=== PATIENT | female | born 1990 | race African-American/Black ===

== ENCOUNTER 2020-08-05 09:45 | Emergency (ER) | payer OTHER, SELFPAY ==
[2020-08-05 09:48] VITALS: BP 112/74; PULSE 82; RESP 15; TEMP 37.1; O2SAT 100; BMI 20.7
--- NOTE | 2020-08-05 10:02 | DI.US.S_ITS ---
PROCEDURE: US OB <= 14 WEEKS FETUS INDICATIONS: SPOTTING 12 WEEKS GESTATION OUTSIDE/PRIOR DATING DATA: Last menstrual period (LMP): 05/14/2020. LMP-based estimated date of delivery (DENNIS): 02/18/2021 First dating scan (date and location): 08/05/2020 Estimated date of delivery (DENNIS) from first dating scan: 02/16/2021 TECHNIQUE: Real-time scanning was performed of the fetuses and maternal pelvic organs, with image documentation. Endovaginal scanning: Performed for better visualization of the fetuses and maternal adnexal structures. COMPARISON: None. FINDINGS: Single intrauterine gestational sac is seen with pole and yolk sac seen. heart rate is 171 beats per minute. Steptoe-rump length measures 5.6 centimeters. Estimated gestational age based on current study is 12 weeks 1 day. There is no perigestational hematoma. Measurement variability in dating: +/- 4 weeks by LMP, +/- 7 days by mean sac diameter (use before 6 weeks gestation if crown-rump length unable to be measured), +/- 5 days by crown-rump length (up to 8 weeks 6 days gestation), +/- 7 days by crown-rump length (up to 13 weeks 6 days gestation). Maternal organs: Left ovary is not visualized on this study. Right ovary contains a corpus luteal cyst measures 2 x 2.3 x 1.9 cm in size. Limited images through the kidneys demonstrate mild pelviectasis in right kidney. 3 millimeter echogenic focus is seen in upper pole of right kidney. IMPRESSION: 1. Single live intrauterine with fetus and yolk sac seen. heart rate is 171 beats per minute. Estimated gestational age is 12 weeks 1 day. 2. No evidence of perigestational hematoma 3. Corpus luteal cyst is seen in right ovary as above. Left ovary is not visualized on this study. 4. Mild right renal pelviectasis. Suggestion of tiny 3 millimeter nonobstructing upper pole right renal stone. No left-sided hydronephrosis. Dictated by: Ronnie Babb M.D. on 08/05/2020 at 10:42 Approved by: Ronnie Babb M.D. on 08/05/2020 at 10:45
--- NOTE | 2020-08-05 10:05 | PC.NURSE ---
pt dx with subchorionic hemmorhage 6 wks ago,bleeding stopped,spotting began this morning
[2020-08-05 10:29] LABS: Add Manual Diff / Slide Review NO; Basophils Absolute Auto 0 /uL (0-100); Basophils Percent Auto 0.7 % (0-2); Eosinophils Absolute Auto 0 /uL (0-450); Eosinophils Percent Auto 0.6 % (2-4); Hematocrit 36.2 % (36-46); Hemoglobin 12.4 g/dL (12.0-16.0); Lymphocytes Absolute Auto 1300 /uL (1100-4500); Lymphocytes Percent Auto 30.7 % (25-40); Mean Corpuscular HGB Conc 34.1 % (30-36); Mean Corpuscular Volume 81.9 fL (80-100); Monocytes Absolute Auto 300 /uL (0-900); Monocytes Percent Auto 7.8 % (3-14); Neutrophils Absolute Auto 2500 /uL (1500-7000); Neutrophils Percent Auto 60.2 % (50-75); Platelet Count 261 X10^3/uL (150-400); Red Blood Cell Count 4.42 X10^6/uL (4.0-5.2); Red Cell Distribution Width 13.6 % (11.6-14.8); White Blood Cell Count 4.2 X10^3/uL (4.5-11.0)
--- NOTE | 2020-08-05 10:38 | ED.PREGNANCY ---
HPI - General Chief complaint: Vaginal Bleeding Stated complaint: spotting and 12 weeks Time Seen by Provider: 08/05/20 10:37 Source: patient Mode of arrival: Ambulatory Limitations: no limitations History of Present Illness HPI Narrative: This is a 29-year-old female at 12 weeks who woke up overnight feeling nauseated and having some vaginal pain, patient described as stinging needles in the vaginal area. She also had some loose diarrhea like stools. Patient states she continues to feel nauseated. This morning she noted some spotting on her underwear when she woke up. She has not had any abdominal cramping that she is appreciated. She has been following with OBGYN through the [facility] but is currently transitioning to the OBGYN service here at [facility] secondary to base staffing issues. She is scheduled to be seen on the . Patient had 1 prior which was vaginal delivery with no complications. During this at 6 weeks she had some spotting had a subchorionic hemorrhage, she has not had any other complications. She denies any other medical issues, no surgeries. No allergies to medications. She does take a daily. 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 RESPIRATORY: Breath sounds equal bilaterally, no wheezes rales or rhonchi. ABDOMEN: Soft, nontender. Normoactive bowel sounds all 4 quadrants. No guarding or rebound, rigidity, no mass : No CVA tenderness EXTREMITIES: Normal range of motion, no clubbing or edema. Neurovascularly intact NEUROLOGICAL: Cranial nerves II through XII grossly intact. Moving all extremities SKIN: Warm, dry, no petechiae, no rashes or lesions. Initial Vital Signs Initial Vital Signs: Vital Signs Temperature 98.8 F 08/05/20 09:48 Pulse Rate 82 08/05/20 09:48 Respiratory Rate 15 08/05/20 09:48 Blood Pressure 112/74 08/05/20 09:48 Pulse Oximetry 100 08/05/20 09:48 Course Orders Ordered: ED Orders 08/05/20 10:02 US OB <= 14 weeks fetus Stat 08/05/20 10:15 ABO RH Type Stat Complete Blood Count AUTO DIFF Stat Comprehensive Metabolic Panel Stat HCG Quantitative /Beta subunit Stat Discontinued Medications Ondansetron HCl (Zofran Odt) 4 mg SL NOW ONE Stop: 08/05/20 11:18 Reevaluation(s) Reevaluation #1: Patient and I discussed lab findings, ultrasound, plan for pelvic rest. She has follow-up on the 17 of August but we discussed she could follow up sooner. She can call the office. Discussed signs and symptoms to watch for and at this time the majority of care is watchful waiting to see if bleeding worsens or stops and progresses uneventfully. Time: 12:08 Vital Signs Vital signs: Vital Signs - 8 hr 08/05/20 09:48 Temperature 98.8 F Pulse Rate 82 Respiratory Rate 15 Blood Pressure 112/74 Pulse Oximetry 100 MDM - OB/Uterine Contractions Lab Data Attestation: I reviewed the patient's lab results. Result diagrams: 08/05/20 10:15 08/05/20 10:15 Labs: Lab Results 08/05/20 08/05/20 08/05/20 Range/Units 10:15 10:15 10:15 WBC 4.2 L (4.5-11.0) X10^3/uL RBC 4.42 (4.0-5.2) X10^6/uL Hgb 12.4 (12.0-16.0) g/dL Hct 36.2 (36-46) % MCV 81.9 (80-100) fL MCH 28.0 (26-34) PG MCHC 34.1 (30-36) % RDW 13.6 (11.6-14.8) % Plt Count 261 (150-400) X10^3/uL Neut % (Auto) 60.2 (50-75) % Lymph % (Auto) 30.7 (25-40) % [place] % (Auto) 7.8 (3-14) % Eos % (Auto) 0.6 L (2-4) % Baso % (Auto) 0.7 (0-2) % Neut # (Auto) 2500 (9668-9705) /uL Lymph # (Auto) 1300 (8042-9506) /uL [place]ole # (Auto) 300 (0-900) /uL Eos # (Auto) 0 (0-450) /uL Baso # (Auto) 0 (0-100) /uL Sodium 134 L (137-145) mmol/L Potassium 3.6 (3.4-5.1) mmol/L Chloride 104 (98-107) mmol/L Carbon Dioxide 26 (22-32) mmol/L BUN 7 (7-17) mg/dL Creatinine 0.53 (0.52-1.04) mg/dL Estimated GFR > 60.0 (>60) mL/min BUN/Creatinine Ratio 13.2 (6-22) Glucose 87 (70-100) mg/dL Calcium 9.3 (8.4-10.2) mg/dL Total Bilirubin 0.4 (0.2-1.3) mg/dL AST 22 (14-36) IU/L ALT 9 (<35) IU/L Alkaline Phosphatase 43 (38-126) U/L Total Protein 7.2 (6.3-8.2) g/dL Albumin 3.8 (3.5-5.0) g/dL Globulin 3.4 (1.7-4.1) g/dL Albumin/Globulin Ratio 1.1 (1.0-2.8) HCG, Quant 066373 mIU/mL Blood Type O Positive Urine Dip Bedside Urine Glucose Negative Bedside Urine Bilirubin - Negative Bedside Urine Ketone - Negative Urine Specific [place] 1.025 Bedside Urine Occult Blood +/- Bedside Urine pH 6.0 Bedside Urine Protein - Negative Bedside Urine Urobilinogen - Negative Bedside Urine Nitrite - Negative Bedside Urine Leukocytes - Negative Esterase MDM Narrative Medical decision making narrative: Patient comes in with vaginal spotting, she had a subchorionic hemorrhage at 6 weeks, this is resolved on ultrasound. Heart rates in the 170s but no other changes. Patient has had some spotting but no additional active bleeding. Her labs including her Rh status. Patient does not require RhoGAM today she is O positive. Plan for pelvic rest, follow-up with OB. Discharge Plan Departure Patient Disposition: Home Clinical Impression: Vaginal bleeding during Discharge Date/Time: 08/05/20 12:11 Instructions: DI for Vaginal Bleeding During Activity Restrictions/Additional Instructions: Follow-up with your OBGYN appointment that is scheduled, I would recommend calling to see if they would like you to come in sooner. I would recommend pelvic rest with no heavy lifting, no sexual activity and do not use any tampons for any continued vaginal spotting. Make sure you are drinking plenty of fluids. You may take Zofran 1 tablet every 6 hours as needed for nausea. Return to the ER for fevers, rapidly worsening abdominal or pelvic pain, lightheadedness, passing out, new chest pain or shortness of breath, passing large clots or rapidly worsening vaginal bleeding or other new or concerning symptoms. Prescriptions: New ondansetron HCl [Zofran] 4 mg tablet 4 mg PO Q6H PRN (Reason: nausea and vomiting) Qty: 10 RF: 0 Referrals: Marielle Dillard MD [Primary Care Provider] - Stand Alone Forms: Against Medical Advice
[2020-08-05 10:39] LABS: Alanine Aminotransferase 9 IU/L (<35); Albumin 3.8 g/dL (3.5-5.0); Albumin Globulin Ratio 1.1 (1.0-2.8); Alkaline Phosphatase 43 U/L (38-126); Aspartate Aminotransferase 22 IU/L (14-36); BUN Creatinine Ratio 13.2 (6-22); Bilirubin Total 0.4 mg/dL (0.2-1.3); Blood Urea Nitrogen 7 mg/dL (7-17); Calcium 9.3 mg/dL (8.4-10.2); Carbon Dioxide 26 mmol/L (22-32); Chloride 104 mmol/L (98-107); Estimated Glomerular Filt Rate > 60.0 mL/min (>60); Globulin 3.4 g/dL (1.7-4.1); Glucose 87 mg/dL (70-100); HEMOLYSIS < 15 (0-50); Potassium 3.6 mmol/L (3.4-5.1); Sodium 134 mmol/L (137-145); Total Protein 7.2 g/dL (6.3-8.2)
[2020-08-05 11:21] LABS: HCG Quantitative /Beta subunit 146440 mIU/mL
[2020-08-05 12:11] VITALS: BP 118/70; PULSE 85; O2SAT 98
== END 2020-08-05 12:11 | disposition home or self-care (01) ==
PROVIDERS: Emergency Provider Emergency Medicine; PCP Obstetrics & Gynecology
DX: O46.91 Antepartum hemorrhage, unspecified, first trimester (principal); R11.0 Nausea; R19.7 Diarrhea, unspecified; Z3A.12 12 weeks gestation of pregnancy
CPT/HCPCS: 36415; 76801; 76817; 80053; 81003; 84702; 85025; 86900; 86901; 99284

== ENCOUNTER → 2020-10-01 12:11 | Outpatient (CLI) | payer OTHER, SELFPAY ==
--- NOTE | 2020-10-01 12:12 | DI.US.S_ITS ---
PROCEDURE: US OB >= 14 WEEKS FETUS INDICATIONS: 20 week anatomy scan OUTSIDE/PRIOR DATING DATA: Last menstrual period (LMP): 05/14/2020. LMP-based estimated date of delivery (DENNIS): 12/19/2020 First dating scan (date and location): 08/05/2020 at [facility] Estimated date of delivery (DENNIS) from first dating scan: 02/16/2021 TECHNIQUE: Real-time scanning was performed of the fetus, with image documentation and biometric measurements. Endovaginal scanning: Not performed. COMPARISON: [facility], US, OB >= 14 WEEKS FETUS, 09/14/2020, 11:26. FINDINGS: General: A single living intrauterine gestation is present. Presentation: Breech Placenta: Placental position is posterior, without previa. Amniotic fluid index: 11 cm, normal range is 5-24 cm. heart rate: 158 beats per minute. Maternal cervical canal: 7.2 cm long. Normal lower limit is 2.5 cm. biometrics: Biparietal diameter: 4.7 cm, 20 weeks 2 days Head circumference: 17.9 cm, 20 weeks 3 days Abdominal circumference: 15.2 cm, 20 weeks 3 days Femur length: 3.3 cm, 20 weeks 1 day Estimated gestational age from initial scan: 20 weeks 2 days. Composite gestational age from present scan: 20 weeks 2 days Estimated weight and percentile: 347 g, 48th percentile Measurement variability for biometric dating: +/- 7 days from 14 weeks to 15 weeks 6 days gestation, +/- 10 days from 16 weeks to 21 weeks 6 days gestation, +/- 2 weeks from 22 weeks to 27 weeks 6 days gestation, +/- 3 weeks for 28 weeks gestation or later. weight reference: 4500 g or EFW >90/95% is considered macrosomia or large for gestational age. EFW <10% is small for gestational age. EFW 5% or less is considered intra-uterine growth restriction. Anatomic survey: Neuro: Ventricles are non-dilated at less than 10 mm. Cisterna magna is normal at 3-11 mm. Cerebellum is normal in size and morphology. Nuchal skin fold: Normal at less than 6 mm between 14-21 weeks gestational age. Face: Nose and lips, facial profile are normal. Spine: No evidence for spina bifida. Heart: 4-chambered heart is present, with normal ventricular outflow tracts. Diaphragm: Diaphragm is intact. Stomach: Left-sided stomach is present. Kidneys: No hydronephrosis. Normal is less than 5 mm in 2nd trimester, less than 7 mm in 3rd trimester. Cord: 3-vessel cord has orthotopic insertion. Bladder: Normal in size. Extremities: All 4 extremities identified. IMPRESSION: 1. Single live intrauterine with appropriate interval growth. 2. Normal anatomic survey. 3. gender not well visualized. Dictated by: Ananth Mireles M.D. on 10/01/2020 at 14:02 Approved by: Ananth Mireles M.D. on 10/01/2020 at 14:07
== END ==
PROVIDERS: PCP Obstetrics & Gynecology; Referring Provider Obstetrics & Gynecology; Visit Provider Obstetrics & Gynecology
DX: Z34.82 Encounter for supervision of other normal pregnancy, second trimester (principal); Z3A.20 20 weeks gestation of pregnancy
CPT/HCPCS: 76811

== ENCOUNTER 2020-11-01 19:30 | Outpatient (CLI) | payer OTHER, SELFPAY ==
--- NOTE | 2020-11-01 19:59 | P.TNLD_ITS ---
Visit Information Visit Information Date of evaluation: 11/01/20 Primary OB Provider: Marielle Dillard On-call OB Provider: Trisha Ruffin Reason for Evaluation: Yes non-stress test Comments/Additional reasons for admission: Patient is a 30-year-old at 24 weeks and 3 days presenting with leaking of fluid x1 week as well as right rib pain. complicated by frequent UTI managed with prophylactic nitrofurantoin. She reported good movement denied contractions or bleeding. No fevers. [facility] Medical History (Updated 11/02/20 @ 07:22 by Trisha Ruffin DO) H/O being hospitalized (~2015) Sepsis (spontaneous vaginal delivery) (~11/26/16) UTI (urinary tract infection) Surgical History (Updated 08/11/20 @ 10:59 by Lauryn Escalante, MYKE) H/O wisdom tooth extraction Family History (Updated 08/11/20 @ 11:00 by Lauryn Escalante RN) Mother No problems noted. Father Myocardial infarction Asthma Grandmother Diabetes mellitus Grandfather No problems noted. Grandmother Cancer Lung cancer Grandfather Family estrangement Family/Other Autism Family/Other Cancer Family/Other Cancer Brother CVA (cerebral vascular accident) Sister Asthma Social History marital status: (In divorce proceedings - will be before this baby is born. Ex- is not Father of Lucas.) household members: significant other lives independently: Yes pets and animals: No occupational status: employed (Active Duty : Limited) current occupational exposures/hazards: No special sean needs: No Smoking Status: Former smoker (Quit : 3 years ago 2016 ) Tobacco: How many years used: 2 second hand exposure: No alcohol intake: former (pre- : social) substance use type: does not use Evaluation Evaluation Baseline heart rate: 150 Variability: Moderate (11-25) monitor accelerations: Present monitor decelerations: Absent Category of Tracing: Reactive Non-invasive Membranes Rupture Test: negative Diagnosis, Plan/Disposition Final Diagnosis (1) 24 weeks gestation of : Status: Acute Plan/Disposition Plan: 30-year-old at 24 weeks and 3 days gestation with concerns for rupture of membranes. AmniSure was negative. NST reactive. Urinalysis appears negative however culture is pending. She will discharge home and follow-up with Dr. Dillard as scheduled. OB Disposition: home
[2020-11-01 20:00] LABS: Appearance Urine UA SL CLOUDY; Bilirubin Urine UA NEGATIVE (NEGATIVE); Color Urine UA YELLOW; Glucose Urine UA NEGATIVE (Negative); Ketones Urine UA NEGATIVE (NEGATIVE); Leukocyte Esterase Urine UA 1+ (NEGATIVE); Nitrite Urine UA NEGATIVE (Negative); Occult Blood Urine UA NEGATIVE (Negative); Protein Urine UA NEGATIVE (Negative); Specific Gravity Urine UA <=1.005 (1.000-1.035); Urobilinogen Urine UA 0.2 E.U./dL (0.2)
[2020-11-01 20:12] LABS: pH Urine UA 6.5 (4.5-8.0)
[2020-11-01 20:13] LABS: RBC Urine None Seen (0-5/HPF)
[2020-11-01 20:20] LABS: WBC Urine 10-30/HPF (0-5/HPF)
[2020-11-01 20:21] LABS: Amorphous Sediment Urine 1+; Bacteria Urine Many (>30); Culture Indicated Urine Specimen Cultured; Squamous Epithelial Cell Urine 5-10 /HPF (0-5/HPF)
== END 2020-11-01 20:05 | disposition home or self-care (01) ==
LOC: LABOR 20:20 → OB 11-02 08:59
PROVIDERS: Referring Provider Family Medicine; Visit Provider Family Medicine
DX: O26.892 Other specified pregnancy related conditions, second trimester (principal); N89.8 Other specified noninflammatory disorders of vagina; R07.81 Pleurodynia; Z3A.24 24 weeks gestation of pregnancy
CPT/HCPCS: 59025; 81003; 81015; 84112; 87086; G0378; G0379

== ENCOUNTER → 2020-11-05 12:44 | Outpatient (CLI) | payer OTHER, SELFPAY | PROVIDERS: Visit Provider Obstetrics & Gynecology | DX: Z34.90 Encounter for supervision of normal pregnancy, unspecified, unspecified trimester (principal); Z3A.24 24 weeks gestation of pregnancy; Z87.440 Personal history of urinary (tract) infections | CPT/HCPCS: 87077; 87086 ==

== ENCOUNTER 2020-11-19 01:09 | Observation (INO) | payer OTHER, SELFPAY ==
--- NOTE | 2020-11-19 | DI.US.S_ITS ---
PROCEDURE: US OB LIMITED INDICATIONS: CERVICAL LENGTH, AMNIOTIC FLUID, AND POSITION OUTSIDE/PRIOR DATING DATA: Last menstrual period (LMP): May 14, 2020. LMP-based estimated date of delivery (DENNIS): February 18, 2021. First dating scan (date and location): August 05, 2020. Estimated date of delivery (DENNIS) from first dating scan: February 16, 2021. TECHNIQUE: Real-time scanning was performed of the fetus, with image documentation. Endovaginal scanning: Perform COMPARISON: None. FINDINGS: A single living intrauterine gestation is present. Presentation: Vertex Placenta: Placental position is posterior, without previa. Amniotic fluid index: 21.5 cm, normal range is 5-24 cm. heart rate: 180 beats per minute. Maternal cervical canal: Closed and 3.4 cm long. Normal lower limit is 2.5 cm. Estimated gestational age from initial scan: 27 weeks 2 days. IMPRESSION: 1. Single living intrauterine gestation. 2. Normal amniotic fluid index. 3. Cervical canal length 3.4 centimeters. Dictated by: January Venegas MD, PhD on 11/19/2020 at 9:03 Approved by: January Venegas MD, PhD on 11/19/2020 at 9:04
[2020-11-19 01:29] LABS: RBC Urine None Seen (0-5/HPF); WBC Urine None Seen (0-5/HPF)
[2020-11-19 01:38] LABS: Appearance Urine UA CLEAR; Bilirubin Urine UA NEGATIVE (NEGATIVE); Glucose Urine UA NEGATIVE (Negative); Ketones Urine UA NEGATIVE (NEGATIVE); Leukocyte Esterase Urine UA NEGATIVE (NEGATIVE); Nitrite Urine UA NEGATIVE (Negative); Occult Blood Urine UA NEGATIVE (Negative); Protein Urine UA NEGATIVE (Negative); Specific Gravity Urine UA <=1.005 (1.000-1.035); Urobilinogen Urine UA 0.2 E.U./dL (0.2)
[2020-11-19 01:39] LABS: Color Urine UA Straw
[2020-11-19] MEDS: NIFEdipine 10 MG CAPSULE PO ×4 (02:00→03:25)
[2020-11-19 02:11] LABS: Bacteria Urine Occasional (0-1); Culture Indicated Urine Cult Not Indicated
--- NOTE | 2020-11-19 02:44 | P.TNLD_ITS ---
Visit Information Visit Information Date of evaluation: 11/19/20 Primary OB Provider: Marielle Dillard On-call OB Provider: Trisha Ruffin Reason for Evaluation: Yes pre-term labor Comments/Additional reasons for admission: Patient is a 30-year-old at 27 weeks gestation with reports regular contractions since approximately 10:30 p.m.. They feel like [place] contractions but occasionally she has a stronger one. She tried drinking water and lying down but contractions persisted so she presented to the center. Reports good movement and denies leaking or bleeding or fevers. She has otherwise felt well besides the contractions. She takes prophylactic nitrofurantoin for recurrent UTIs. She has a history of one vaginal delivery at term which was complicated by a c ervical laceration. Vital Signs Vital Signs: T 36.9 BP 101/65 P77 [facility] Medical History (Updated 11/19/20 @ 02:46 by Trisha Ruffin DO) H/O being hospitalized (~2015) Sepsis (spontaneous vaginal delivery) (~11/26/16) UTI (urinary tract infection) Surgical History (Updated 08/11/20 @ 10:59 by Lauryn Escalante RN) H/O wisdom tooth extraction Family History (Updated 08/11/20 @ 11:00 by Lauryn Escalante RN) Mother No problems noted. Father Myocardial infarction Asthma Grandmother Diabetes mellitus Grandfather No problems noted. Grandmother Cancer Lung cancer Grandfather Family estrangement Family/Other Autism Family/Other Cancer Family/Other Cancer Brother CVA (cerebral vascular accident) Sister Asthma Social History marital status: (In divorce proceedings - will be before this baby is born. Ex- is not Father of Lucas.) household members: significant other lives independently: Yes pets and animals: No occupational status: employed (Active Duty : Limited) current occupational exposures/hazards: No special sean needs: No Smoking Status: Former smoker (Quit : 3 years ago 2016 ) Tobacco: How many years used: 2 second hand exposure: No alcohol intake: former (pre- : social) substance use type: does not use Objective Labs Labs: Laboratory Results - last 24 hr 11/19/20 01:20 Urine Color Straw Urine Appearance Clear Urine pH 7.0 Ur Specific [place] <=1.005 Urine Protein Negative Urine Glucose (UA) Negative Urine Ketones Negative Urine Occult Blood Negative Urine Nitrate Negative Urine Bilirubin Negative Urine Urobilinogen 0.2 Ur Leukocyte Esterase Negative Urine RBC None seen Urine WBC None seen Urine Bacteria Occasional (0-1) D Ur Culture Indicated? Cult not indicated Evaluation Evaluation Baseline heart rate: 150 Variability: Moderate (11-25) monitor accelerations: Present monitor decelerations: Absent Contraction Frequency (minutes): 3 Category of Tracing: Reactive Cervical dilation (cm): 0 Cervical effacement (%): 25 station: -3 Laboratory results: Laboratory Tests 11/19/20 01:20 Urine Color Straw Urine Appearance Clear Urine pH 7.0 Ur Specific [place] <=1.005 Urine Protein Negative Urine Glucose (UA) Negative Urine Ketones Negative Urine Occult Blood Negative Urine Nitrate Negative Urine Bilirubin Negative Urine Urobilinogen 0.2 Ur Leukocyte Esterase Negative Urine RBC None seen Urine WBC None seen Urine Bacteria Occasional (0-1) D Ur Culture Indicated? Cult not indicated Diagnosis, Plan/Disposition Final Diagnosis (1) contractions: Status: Acute (2) 27 weeks gestation of : Status: Acute Plan/Disposition Plan: Patient is a 30-year-old at 27 weeks gestation with regular contractions every 3 minutes up arrival to the center. complicated by recurrent UTI on prophylactic Macrobid. She was also recently treated with metronidazole for gardnerella UTI. Patient has otherwise felt well without leaking of fluid or vaginal bleeding. No h/o labor in her first . UA negative. Ultrasound showed cervical length of 3.4 cm with DONN of 21.5 and in vertex position. Patient received nifedipine protocol without significant change in contractions. FFN was sent and returned negative. She received a liter of LR and was monitored over several more hours with subjective improvement in her contractions. She is felt to be safe to discharge home given CL>3 cm, neg FFN and improvement in contractions. She is aware to return to the center for increased contractions (frequency or pain). Follow up with Dr. Dillard as scheduled. OB Disposition: home
[2020-11-19 04:52] LABS: Fetal Fibronectin Negative
[2020-11-19] MEDS: ACETAMINOPHEN 325 MG TABLET 650 MG PO (05:05)
[2020-11-19] MEDS: LACTATED RINGERS 1,000 ML 1000 ML IV (05:07)
== END 2020-11-19 06:20 | disposition home or self-care (01) ==
LOC: LABOR 01:12
PROVIDERS: Admitting Provider Family Medicine; Referring Provider Family Medicine; Visit Provider Family Medicine
DX: O60.02 Preterm labor without delivery, second trimester (principal); Z3A.27 27 weeks gestation of pregnancy; Z87.440 Personal history of urinary (tract) infections
CPT/HCPCS: 59025; 59050; 76815; 81001; 82731; 96360; G0378; G0379

== ENCOUNTER 2020-11-26 15:52 | Observation (INO) | payer OTHER, SELFPAY ==
[2020-11-26] MEDS: NIFEdipine 10 MG CAPSULE PO ×4 (16:36→17:39)
[2020-11-26 17:09] LABS: Appearance Urine UA CLEAR; Bilirubin Urine UA NEGATIVE (NEGATIVE); Color Urine UA YELLOW; Glucose Urine UA NEGATIVE (Negative); Ketones Urine UA 1+ (NEGATIVE); Leukocyte Esterase Urine UA NEGATIVE (NEGATIVE); Nitrite Urine UA NEGATIVE (Negative); Occult Blood Urine UA NEGATIVE (Negative); Protein Urine UA NEGATIVE (Negative); Specific Gravity Urine UA 1.015 (1.000-1.035); Urobilinogen Urine UA 0.2 E.U./dL (0.2)
[2020-11-26 17:19] LABS: Bacteria Urine Few (2-10); Culture Indicated Urine Cult Not Indicated; RBC Urine 0-1/HPF (0-5/HPF); WBC Urine 0-1/HPF (0-5/HPF)
[2020-11-26 17:29] LABS: Fetal Fibronectin Negative
[2020-11-26] MEDS: LACTATED RINGERS 1,000 ML 1000 ML IV (18:05)
[2020-11-26 18:13] LABS: Add Manual Diff / Slide Review NO; Basophils Absolute Auto 0 /uL (0-100); Basophils Percent Auto 0.7 % (0-2); Eosinophils Absolute Auto 0 /uL (0-450); Eosinophils Percent Auto 0.7 % (2-4); Hematocrit 36.6 % (36-46); Hemoglobin 12.3 g/dL (12.0-16.0); Lymphocytes Absolute Auto 2000 /uL (1100-4500); Lymphocytes Percent Auto 29.9 % (25-40); Mean Corpuscular HGB Conc 33.6 % (30-36); Mean Corpuscular Hemoglobin 28.4 PG (26-34); Mean Corpuscular Volume 84.3 fL (80-100); Monocytes Absolute Auto 600 /uL (0-900); Monocytes Percent Auto 8.9 % (3-14); Neutrophils Absolute Auto 3900 /uL (1500-7000); Neutrophils Percent Auto 59.8 % (50-75); Platelet Count 245 X10^3/uL (150-400); Red Blood Cell Count 4.33 X10^6/uL (4.0-5.2); Red Cell Distribution Width 13.9 % (11.6-14.8); White Blood Cell Count 6.6 X10^3/uL (4.5-11.0)
--- NOTE | 2020-11-26 18:18 | PM.OBHP.1 ---
OB HPI Date/Time Date of admission: 11/26/20 Date Patient Seen: 11/26/20 Time Patient Seen: 18:18 History of Present Condition Chief complaint: NST : 2 Para: 1 Estimated Date of Delivery: 02/18/21 Estimated Gestational Age (weeks): 28 Narrative: Daina Casas is a 30 year old @28+0 by 7 week ultrasound consistent with LMP, presenting to Labor and delivery with concern for labor. The patient was evaluated 1 week ago with persistent contractions, but discharged home with a long cervix and a negative FF in. The patient reports that her contractions persisted consistently every 2-5 minutes, increasingly painful, until she presented to today's scheduled clinic visit. The patient qualified for an FFN and this was collected and found to be negative, and initial cervical length was 4 cm with no funneling or change with Valsalva. The patient's cervix was initially closed, long, posterior, and medium consistency, with the presenting part barely palpable. She was sent to Labor and delivery for monitoring, where she was found to be brigitte Q 2-3 minutes despite a course of nifedipine, p.o. and then IV hydration, and bladder emptying. The patient has a history of frequent UTIs and is currently on Macrobid 100 mg daily for suppression, and denies dysuria, urinary frequency, hematuria, foul-smelling urine, or suprapubic pain today. She denies fevers, chills, recent abdominal trauma, loss of fluid or vaginal bleeding, decreased movement, headaches, visual changes, right upper quadrant pain, or any associated symptoms beyond these contractions. Transabdominal ultrasound in the clinic showed symmetric growth with an EFW of 1263 g, 62nd percentile, with an DONN of 16 and vertex presentation. The patient was found to hours after initial exam to have made cervical change to 1 cm though her cervix remains thick, -3 station and no longer easily ballotable, with a softer and more anterior cervix. Her was marked by transfer of care from the [facility] at 13 weeks. She was recently diagnosed with depression and started on sertraline 3 weeks ago to good effect, now taking 50 mg daily. Her has also been complicated by social factors including and ongoing divorce from her partner who is not the father of this baby, and the fact that her 3-year-old lives on the [facility]. She has had a safe living situation, and denies any thoughts of hurting herself or others though she does report poor p.o. intake during the worst of her depressive symptoms. The patient declined aneuploid screening during this , had a normal anatomy scan, and has not completed her Glucola. Her 1st was followed by a 40 week vaginal delivery of a 7 lb 9 oz male infant. The patient reports a cervical laceration during the , and serial cervical lengths during this have been normal, over 4cm. History of Present care: good care Dating criteria: LMP confirmed by 1st trimester US Ultrasounds: normal 1st trimester US and normal mid trimester US Obstetrical complications: none Medical complications: none Preadmission Labs Blood type: O (+) positive -: Antibody screen: negative, GBS status: unknown, HBsAG: negative, HIV: negative and RPR/VDLR: negative -: Chlamydia screen: not detected and Gonorrhea screen: not detected -: Rubella: immune and Varicella: immune PAP: Normal Integrated screen: Declined Urine: +e coli Prior (ies) History: G1: 11/26/16, , 40wks, 7#9, M, c/b cervical laceration Evaluation Evaluation Baseline heart rate: 150 Variability: Average (6-10) monitor accelerations: Present monitor decelerations: Absent Contraction Frequency (minutes): 2 Uterine Contraction Intensity: Strong/Firm Category of Tracing: Reactive Status: Category l Cervical dilation (cm): 1 Cervical effacement (%): 20 station: -3 Laboratory results: Laboratory Tests 11/26/20 11/26/20 16:08 16:08 Urine Color Yellow Urine Appearance Clear Urine pH 7.0 Ur Specific [place] 1.015 Urine Protein Negative Urine Glucose (UA) Negative Urine Ketones 1+ H Urine Occult Blood Negative Urine Nitrate Negative Urine Bilirubin Negative Urine Urobilinogen 0.2 Ur Leukocyte Esterase Negative Urine RBC 0-1/hpf Urine WBC 0-1/hpf Urine Bacteria Few (2-10) H Ur Culture Indicated? Cult not indicated Fibronectin Negative PFSH Medical History H/O being hospitalized (~2015) Sepsis (spontaneous vaginal delivery) (~11/26/16) UTI (urinary tract infection) Surgical History H/O wisdom tooth extraction Family History Mother No problems noted. Father Myocardial infarction Asthma Grandmother Diabetes mellitus Grandfather No problems noted. Grandmother Cancer Lung cancer Grandfather Family estrangement Family/Other Autism Family/Other Cancer Family/Other Cancer Brother CVA (cerebral vascular accident) Sister Asthma Social History marital status: (In divorce proceedings - will be before this baby is born. Ex- is not Father of Lucas.) household members: significant other lives independently: Yes pets and animals: No occupational status: employed (Active Duty : Limited) current occupational exposures/hazards: No special sean needs: No Smoking Status: Former smoker (Quit : 3 years ago 2016 ) Tobacco: How many years used: 2 second hand exposure: No alcohol intake: former (pre- : social) substance use type: does not use Meds Home Medications and Allergies Home Medications Medication Instructions Recorded Confirmed Type ferrous sulfate 325 mg (65 mg 325 mg PO DAILY 08/11/20 08/11/20 History iron) tablet prenat.vits,jad,bbr-kmxs-bwqlm 1 tab PO DAILY 08/11/20 08/11/20 History pyridoxine (vitamin B6) 25 mg 25 mg PO BID 08/11/20 08/11/20 History tablet docusate sodium 100 mg capsule 100 mg PO BID #30 cap 08/17/20 08/17/20 Rx metoclopramide HCl 10 mg tablet 10 mg PO Q6H PRN #20 tab 08/17/20 08/17/20 Rx nitrofurantoin 100 mg PO DAILY #30 cap 08/17/20 08/17/20 Rx monohydrate/macrocrystals 100 mg capsule sertraline 50 mg tablet 50 mg PO DAILY #30 tab 11/11/20 Rx Allergies Allergy/AdvReac Type Severity Reaction Status Date / Time No Known Drug Allergies Allergy Verified 08/11/20 10:03 Review of Systems Constitutional Constitutional: Reports system reviewed and no additional complaints, except as documented Cardiovascular Cardiovascular: Reports system reviewed and no additional complaints, except as documented Respiratory Respiratory: Reports system reviewed and no additional complaints, except as documented Gastrointestinal Gastrointestinal: Reports as per HPI Genitourinary Genitourinary: Reports as per HPI Comments: No dysuria, frequency, hematuria, suprapubic pain, LOF, VB Exam Const General: cooperative and healthy appearing Resp Effort & Inspection: normal respiratory effort Auscultation: clear to auscultation bilaterally Cardio Rate: regular rate Rhythm: regular rhythm GI Palpation: soft and No tender Other: firm, palpable contractions. No CVA or suprapubic tenderness. External Female Exam: normal external appearance Presentation: vertex Extrem General: normal to inspection Objective Labs Result Diagrams: 11/26/20 18:05 Labs: Laboratory Results - last 24 hr 11/26/20 11/26/20 16:08 16:08 Urine Color Yellow Urine Appearance Clear Urine pH 7.0 Ur Specific [place] 1.015 Urine Protein Negative Urine Glucose (UA) Negative Urine Ketones 1+ H Urine Occult Blood Negative Urine Nitrate Negative Urine Bilirubin Negative Urine Urobilinogen 0.2 Ur Leukocyte Esterase Negative Urine RBC 0-1/hpf Urine WBC 0-1/hpf Urine Bacteria Few (2-10) H Ur Culture Indicated? Cult not indicated Fibronectin Negative Assessment and Plan Assessment and Plan Assessment and Plan narrative: This patient presents with a picture clinically concerning for labor despite and initially long and closed cervix and negative FFN. The patient was a reliable there are with if anything a tendency to minimize her discomfort, is reporting painful contractions that remain Q 2-3 despite the usual interventions. Her cervix is beginning to make cervical change, and given the patient's gestational age of 28+0, transfer to a center with a NICU needs to be expedited. The patient was discussed with Dr. Mendez at the [facility], and the patient is for transport via ambulance at this time given the course of her labor and the weather conditions. - Betamethasone 12mg IM administered at 18:35 on 11/26/20 - 4g loading dose of Mg sulfate, 2g/hr maintenance - GBS, covid testing, urine culture pending - cEFM, toco - LR@125ccs/hr - Felipe catheter placed
[2020-11-26] MEDS: MAGNESIUM SULFATE 4 GM/100 ML PIGGYBACK IV (18:34)
[2020-11-26] MEDS: BETAMETHASONE 30 MG/5 ML MDV 12 MG IM (18:58)
[2020-11-26] MEDS: MAGNESIUM SULFATE 20 GM/500 ML IV.SOLN IV (19:32)
[2020-11-26 19:54] VITALS: BP 96/51
[2020-11-26 20:02] LABS: COVID19 -Nasal RAPID Negative (Negative)
[2020-11-26 21:13] LABS: Strep Grp B PCR NEG for Grp B Strep
== END 2020-11-26 21:15 | disposition home or self-care (01) ==
PROVIDERS: Admitting Provider Obstetrics & Gynecology; Referring Provider Obstetrics & Gynecology; Visit Provider Obstetrics & Gynecology
DX: O60.03 Preterm labor without delivery, third trimester (principal); O99.343 Other mental disorders complicating pregnancy, third trimester; F32.9 Major depressive disorder, single episode, unspecified; Z3A.28 28 weeks gestation of pregnancy; Z20.822 Contact with and (suspected) exposure to COVID-19
CPT/HCPCS: 36415; 59025; 59050; 81001; 82731; 85025; 86850; 86900; 86901; 87081; 87086; 87635; 87653; 96360; 96372; C9803; G0378; G0379; J0702; J3475

== ENCOUNTER → 2020-12-07 09:55 | Outpatient (CLI) | payer OTHER, SELFPAY ==
[2020-12-07 11:41] LABS: Hemoglobin 11.3 g/dL (12.0-16.0)
[2020-12-07 11:59] LABS: GTT (PREG) 1 Hour PP 50gm Dose 139 mg/dL (76-139)
== END ==
PROVIDERS: Referring Provider Obstetrics & Gynecology; Visit Provider Obstetrics & Gynecology
DX: Z34.82 Encounter for supervision of other normal pregnancy, second trimester (principal); Z3A.27 27 weeks gestation of pregnancy
CPT/HCPCS: 36415; 82950; 85014; 85018

== ENCOUNTER 2020-12-21 18:42 | Outpatient (CLI) | payer OTHER, SELFPAY ==
--- NOTE | 2020-12-21 19:01 | DI.US.S_ITS ---
PROCEDURE: US OB TRANSVAGINAL INDICATIONS: PTL; CERVICAL LENGTH OUTSIDE/PRIOR DATING DATA: Last menstrual period (LMP): 05/14/2020 LMP-based estimated date of delivery (DENNIS): 02/18/2021 First dating scan (date and location): 08/05/2020 Estimated date of delivery (DENNIS) from first dating scan: 02/16/2021 TECHNIQUE: Real-time scanning was performed of the fetus, with image documentation. Endovaginal scanning: Performed for better evaluation of the cervix. COMPARISON: [facility], US, US OB >= 14 WEEKS FETUS, 11/26/2020, 15:31. FINDINGS: A single living intrauterine gestation is present. Presentation: Vertex. Placenta: Placental position is left fundal, without previa. Amniotic fluid index: 8 cm, normal range is 5-24 cm. heart rate: 158 beats per minute. Maternal cervical canal: 3.3 cm long. Normal lower limit is 2.5 cm. No funneling. Estimated gestational age from initial scan: 32 weeks 0 days. IMPRESSION: 1. Kwan living intrauterine at 32 weeks 0 days based on prior ultrasound. 2. Normal placenta and amniotic fluid. 3. Cervix measures 3.3 cm in length. No funneling. Dictated by: King Belle M.D. on 12/21/2020 at 20:22 Approved by: King Belle M.D. on 12/21/2020 at 20:26
== END 2020-12-21 19:45 | disposition home or self-care (01) ==
LOC: LABOR 19:02 → OB 12-22 07:11
PROVIDERS: Referring Provider Family Medicine; Visit Provider Family Medicine
DX: O47.03 False labor before 37 completed weeks of gestation, third trimester (principal); O46.93 Antepartum hemorrhage, unspecified, third trimester; Z3A.31 31 weeks gestation of pregnancy
CPT/HCPCS: 59025; 76817; 84112; G0378; G0379

== ENCOUNTER → 2021-01-03 16:31 | Outpatient (CLI) | payer OTHER, SELFPAY ==
[2021-01-05 05:31] LABS: Candida species Negative (Negative); Gardnerella vaginalis Positive (Negative); Trichomoas vaginalis Negative (Negative)
== END ==
PROVIDERS: Visit Provider Obstetrics & Gynecology
DX: O26.893 Other specified pregnancy related conditions, third trimester (principal); N89.8 Other specified noninflammatory disorders of vagina; Z3A.33 33 weeks gestation of pregnancy
CPT/HCPCS: 87480; 87510; 87660

== ENCOUNTER → 2021-01-07 13:19 | Outpatient (CLI) | payer OTHER, SELFPAY ==
--- NOTE | 2021-01-07 13:20 | DI.US.S_ITS ---
PROCEDURE: US OB LIMITED INDICATIONS: INTRAUTERINE GROWTH RESTRICTION AND UMBILICAL CORD DOPPLERS OUTSIDE/PRIOR DATING DATA: Last menstrual period (LMP): 05/14/20 . LMP-based estimated date of delivery (DENNIS): 02/18/21 . First dating scan (date and location): 08/05/20 . Estimated date of delivery (DENNIS) from first dating scan: 02/16/21 . TECHNIQUE: Real-time scanning was performed of the fetus, with image documentation and biometric measurements. Endovaginal scanning: Not performed COMPARISON: [facility], OB LIMITED, 11/19/2020, 2:33. FINDINGS: General: A single living intrauterine gestation is present. Presentation: Vertex. Placenta: Placental position is left and posterior , without previa. Amniotic fluid index: 15.5 cm, normal range is 5-24 cm. heart rate: 163 beats per minute. Maternal cervical canal: 3.0 cm long. Normal lower limit is 2.5 cm. biometrics: Biparietal diameter: 8.3 cm, 33 weeks, three days Head circumference: 30.8 cm, 34 weeks, two days Abdominal circumference: 30.4 cm, 34 weeks, three days Femur length: 6.2 cm, 32 weeks, two days Estimated gestational age from initial scan: 34 weeks, two days Composite gestational age from present scan: 33 weeks, four days Estimated weight and percentile: 2254 g, 27th percentile Measurement variability for biometric dating: +/- 7 days from 14 weeks to 15 weeks 6 days gestation, +/- 10 days from 16 weeks to 21 weeks 6 days gestation, +/- 2 weeks from 22 weeks to 27 weeks 6 days gestation, +/- 3 weeks for 28 weeks gestation or later. weight reference: 4500 g or EFW >90/95% is considered macrosomia or large for gestational age. EFW <10% is small for gestational age. EFW 5% or less is considered intra-uterine growth restriction. Other: Umbilical artery Dopplers are as follows: 2.7, 2.2, 2.1, 2.7. IMPRESSION: 1. Single living intrauterine with composite gestational age five days behind the initially assigned gestational age. 2. Normal amniotic fluid volume. 3. Appropriate umbilical artery Dopplers. 4. Closed cervix measuring 3.0 cm in length. Dictated by: Haley Anton M.D. on 01/07/2021 at 17:06 Approved by: Haley Anton M.D. on 01/07/2021 at 17:11
== END ==
PROVIDERS: Referring Provider Obstetrics & Gynecology; Visit Provider Obstetrics & Gynecology
DX: Z3A.33 33 weeks gestation of pregnancy; O36.5930 Maternal care for other known or suspected poor fetal growth, third trimester, not applicable or unspecified
CPT/HCPCS: 76815

== ENCOUNTER → 2021-01-18 12:18 | Outpatient (CLI) | payer OTHER, SELFPAY ==
[2021-01-19 09:59] LABS: Strep Grp B PCR NEG for Grp B Strep
== END ==
PROVIDERS: Visit Provider Obstetrics & Gynecology
DX: Z34.83 Encounter for supervision of other normal pregnancy, third trimester (principal); Z3A.35 35 weeks gestation of pregnancy
CPT/HCPCS: 87653

== ENCOUNTER → 2021-01-24 09:05 | Outpatient (CLI) | payer OTHER, SELFPAY ==
[2021-01-24 13:30] LABS: Alanine Aminotransferase 12 IU/L (<35); Albumin 3.1 g/dL (3.5-5.0); Alkaline Phosphatase 157 U/L (38-126); Aspartate Aminotransferase 26 IU/L (14-36); BUN Creatinine Ratio 8.5 (6-22); Bilirubin Total 0.3 mg/dL (0.2-1.3); Blood Urea Nitrogen 4 mg/dL (7-17); Calcium 8.7 mg/dL (8.4-10.2); Carbon Dioxide 24 mmol/L (22-32); Chloride 105 mmol/L (98-107); Estimated Glomerular Filt Rate > 60.0 mL/min (>60); Globulin 3.2 g/dL (1.7-4.1); Glucose 75 mg/dL (70-100); HEMOLYSIS < 15 (0-50); Potassium 3.5 mmol/L (3.4-5.1); Sodium 134 mmol/L (137-145); Total Protein 6.3 g/dL (6.3-8.2)
[2021-01-25 07:41] LABS: Candida species Negative (Negative); Gardnerella vaginalis Positive (Negative); Trichomoas vaginalis Negative (Negative)
[2021-01-25 15:49] LABS: Bile Acids 1.7 umol/L (0.0-10.0)
== END ==
PROVIDERS: Visit Provider Obstetrics & Gynecology
DX: O23.593 Infection of other part of genital tract in pregnancy, third trimester (principal); B96.89 Other specified bacterial agents as the cause of diseases classified elsewhere; L29.9 Pruritus, unspecified; O47.9 False labor, unspecified; Z3A.36 36 weeks gestation of pregnancy
CPT/HCPCS: 36415; 80053; 82239; 85025; 87480; 87510; 87660

== ENCOUNTER → 2021-01-24 09:10 | Outpatient (CLI) | payer OTHER, SELFPAY ==
[2021-01-24 11:02] LABS: Add Manual Diff / Slide Review NO; Basophils Absolute Auto 0 /uL (0-100); Basophils Percent Auto 0.7 % (0-2); Eosinophils Absolute Auto 0 /uL (0-450); Eosinophils Percent Auto 0.7 % (2-4); Hematocrit 33.5 % (36-46); Hemoglobin 11.5 g/dL (12.0-16.0); Lymphocytes Absolute Auto 1400 /uL (1100-4500); Lymphocytes Percent Auto 28.8 % (25-40); Mean Corpuscular HGB Conc 34.2 % (30-36); Mean Corpuscular Hemoglobin 28.3 PG (26-34); Mean Corpuscular Volume 82.8 fL (80-100); Monocytes Absolute Auto 500 /uL (0-900); Neutrophils Absolute Auto 3000 /uL (1500-7000); Neutrophils Percent Auto 59.8 % (50-75); Platelet Count 205 X10^3/uL (150-400); Red Blood Cell Count 4.04 X10^6/uL (4.0-5.2); Red Cell Distribution Width 13.8 % (11.6-14.8); White Blood Cell Count 4.9 X10^3/uL (4.5-11.0)
== END ==
PROVIDERS: Referring Provider Obstetrics & Gynecology; Visit Provider Obstetrics & Gynecology
DX: O47.9 False labor, unspecified (principal)
CPT/HCPCS: 36415; 85025

== ENCOUNTER 2021-02-14 07:16 | Inpatient (IN) | payer OTHER, SELFPAY ==
[2021-02-14] MEDS: LACTATED RINGERS 1,000 ML 100 ML IV ×2 (07:45→12:20)
[2021-02-14] MEDS: OXYTOCIN PREMIX 30 UNIT/500 ML PLAST..BAG IV (08:01)
[2021-02-14 08:04] VITALS: BP 107/70
[2021-02-14 08:28] LABS: Add Manual Diff / Slide Review NO; Basophils Absolute Auto 100 /uL (0-100); Eosinophils Absolute Auto 100 /uL (0-450); Eosinophils Percent Auto 0.8 % (2-4); Hematocrit 35.2 % (36-46); Hemoglobin 11.9 g/dL (12.0-16.0); Lymphocytes Absolute Auto 1800 /uL (1100-4500); Lymphocytes Percent Auto 28.3 % (25-40); Mean Corpuscular HGB Conc 33.6 % (30-36); Mean Corpuscular Hemoglobin 28.3 PG (26-34); Mean Corpuscular Volume 84.1 fL (80-100); Monocytes Absolute Auto 700 /uL (0-900); Monocytes Percent Auto 10.4 % (3-14); Neutrophils Absolute Auto 3800 /uL (1500-7000); Neutrophils Percent Auto 59.5 % (50-75); Platelet Count 232 X10^3/uL (150-400); Red Blood Cell Count 4.19 X10^6/uL (4.0-5.2); Red Cell Distribution Width 13.8 % (11.6-14.8); White Blood Cell Count 6.4 X10^3/uL (4.5-11.0)
--- NOTE | 2021-02-14 09:56 | PM.OBHP.1 ---
OB HPI Date/Time Date of admission: 02/14/21 Date Patient Seen: 02/14/21 Time Patient Seen: 07:40 History of Present Condition Chief complaint: INDUCTION : 2 Para: 1 Estimated Date of Delivery: 02/18/21 Estimated Gestational Age (weeks): 39 Narrative: Diana Casas is a 30 year old 001 at 39 weeks 3 days presenting for elective induction of labor. Patient has had painful contractions every 2-5 minutes since 20/8 weeks, when she began to make cervical change, underwent a course of betamethasone and transfer to a tertiary care center. She made no further cervical change, though she has continued to contract that time. Nifedipine was not effective in reducing her symptoms. Patient denies loss of fluid or vaginal bleeding, has had appropriate growth, and has had no other obstetric complications. She was started on sertraline due to depression in the 3rd trimester, with significant improvement of her symptoms. She has been on p.o. iron for anemia. She has a history of frequent pyelonephritis and UTIs, has been on prophylactic Macrobid transitioned to Keflex in the late period. She has a history of 1 uncomplicated vaginal delivery of a 7 lb, 9 oz infant. This is projected to be approximately 7 lb. Indications Indication for induction OB: maternal discomfort History of Present care: good care, initiated at week # (7), number of visits (17) and pounds weight gain (24) Dating criteria: LMP confirmed by 1st trimester US Ultrasounds: normal 1st trimester US and normal mid trimester US Obstetrical complications: none Medical complications: none Preadmission Labs Blood type: O (+) positive -: Antibody screen: negative, GBS status: negative, HBsAG: negative, HIV: negative and RPR/VDLR: negative -: Chlamydia screen: not detected and Gonorrhea screen: not detected -: Rubella: immune and Varicella: immune Cell-free DNA: No aneuploidy screening performed Urine: e coli, treated prior to transfer 1 hr GTT: 139 Prior (ies) History: G1: 11/26/16, 40 wks, 4 hr labor, 7#9, M, [place], [place] Evaluation Evaluation Baseline heart rate: 135 Variability: Moderate (11-25) monitor accelerations: Present Monitor Decelerations: Absent Category of Tracing: Reactive Status: Category l Cervical dilation (cm): 3 Cervical effacement (%): 75 station: -2 Laboratory results: Laboratory Tests 02/14/21 02/14/21 07:43 07:43 WBC 6.4 RBC 4.19 Hgb 11.9 L Hct 35.2 L MCV 84.1 MCH 28.3 MCHC 33.6 RDW 13.8 Plt Count 232 Neut % (Auto) 59.5 Lymph % (Auto) 28.3 [place] % (Auto) 10.4 Eos % (Auto) 0.8 L Baso % (Auto) 1.0 Neut # (Auto) 3800 Lymph # (Auto) 1800 [place] # (Auto) 700 Eos # (Auto) 100 Baso # (Auto) 100 Blood Type O Positive Antibody Screen Negative [facility] Medical History H/O being hospitalized (~2015) Sepsis (spontaneous vaginal delivery) (~11/26/16) UTI (urinary tract infection) Surgical History H/O wisdom tooth extraction Family History Mother No problems noted. Father Myocardial infarction Asthma Grandmother Diabetes mellitus Grandfather No problems noted. Grandmother Cancer Lung cancer Grandfather Family estrangement Family/Other Autism Family/Other Cancer Family/Other Cancer Brother CVA (cerebral vascular accident) Sister Asthma Social History marital status: household members: significant other lives independently: Yes pets and animals: No occupational status: employed current occupational exposures/hazards: No special sean needs: No Smoking Status: Never smoker Tobacco: How many years used: 2 second hand exposure: No alcohol intake: former substance use type: does not use Meds Home Medications and Allergies Home Medications Medication Instructions Recorded Confirmed Type ferrous sulfate 325 mg (65 mg 325 mg PO DAILY 08/11/20 02/14/21 History iron) tablet prenat.vits,jad,kwc-xixo-ddttv 1 tab PO DAILY 08/11/20 02/14/21 History Allergies Allergy/AdvReac Type Severity Reaction Status Date / Time No Known Drug Allergies Allergy Verified 08/11/20 10:03 Review of Systems Constitutional Constitutional: Reports system reviewed and no additional complaints, except as documented Cardiovascular Cardiovascular: Reports system reviewed and no additional complaints, except as documented Respiratory Respiratory: Reports system reviewed and no additional complaints, except as documented Gastrointestinal Gastrointestinal: Reports system reviewed and no additional complaints, except as documented Genitourinary Genitourinary: Reports system reviewed and no additional complaints, except as documented Exam Vital Signs (past 8 hours): - 02/14/21 08:04 Blood Pressure 107/70 Const General: cooperative, healthy appearing and comfortable GI Palpation: soft and No tender External Female Exam: normal external appearance Extrem General: normal to inspection Objective Labs Result Diagrams: 02/14/21 07:43 Labs: Laboratory Results - last 24 hr 02/14/21 02/14/21 07:43 07:43 WBC 6.4 RBC 4.19 Hgb 11.9 L Hct 35.2 L MCV 84.1 MCH 28.3 MCHC 33.6 RDW 13.8 Plt Count 232 Neut % (Auto) 59.5 Lymph % (Auto) 28.3 [place] % (Auto) 10.4 Eos % (Auto) 0.8 L Baso % (Auto) 1.0 Neut # (Auto) 3800 Lymph # (Auto) 1800 [place] # (Auto) 700 Eos # (Auto) 100 Baso # (Auto) 100 Blood Type O Positive Antibody Screen Negative Assessment and Plan Assessment and Plan Assessment and Plan narrative: This patient is admitted for induction of labor in the setting of symptomatic, painful contractions and a favorable cervix at 39 weeks. Is for induction per Pitocin protocol. Discussed AROM later in the morning. Epidural on demand. Routine precautions and monitoring. Anticipate vaginal delivery. EFW 7 lb, proven to 7#9.
--- NOTE | 2021-02-14 09:56 | PM.OBPNLAB ---
Date/Time Date Patient Seen: 02/14/21 Time Patient Seen: 09:56 Pain Control Pain control: tolerating well Pelvic Exam Dilation (cm): 4 Effacement (%): 80 station: -1 Amniotic membrane status: Ruptured (AROM, clear) Contractions Pitocin rate (mU/min): 6 Contraction frequency (min): 3 Status status: Category l Heart Rate Baseline: 135 Monitor Accelerations: Present Monitor Decelerations: Absent Monitor Variability: Moderate Assessment and Plan Assessment: induction ongoing Plan: continuous present management
[2021-02-14 09:59] LABS: COVID19 - ADMIT (NP swab/PCR) Negative (Negative)
--- NOTE | 2021-02-14 13:07 | PM.OBPNLAB ---
Date/Time Date Patient Seen: 02/14/21 Time Patient Seen: 12:30 Pain Control Pain control: epidural Pelvic Exam Dilation (cm): 5 Effacement (%): 80 station: -1 Amniotic membrane status: Ruptured (AROM, clear) Contractions Pitocin rate (mU/min): 2 Contraction frequency (min): 5 Status status: Category l Heart Rate Baseline: 130 Monitor Accelerations: Present Monitor Decelerations: Absent Monitor Variability: Moderate Assessment and Plan Assessment: induction ongoing Plan: continuous present management
[2021-02-14] MEDS: METHYLERGONOVINE 0.2 MG/ML VIAL IM (14:55)
--- NOTE | 2021-02-14 15:07 | PM.OBPRVD ---
Events: Labor Induction Labor & Delivery Delivery date: 02/14/21 Intrapartal Events: Acceleration and Deceleration Cervical ripening method: none Induction method: per pitocin protocol Delivery augmentation: rupture of membranes Delivery monitor: external FHT and external uterine Route of delivery: L&D Laceration Description: Perineal - 1st Degree Estimated blood loss (mL): 250 Anesthesia Type: Epidural Narrative: Patient was admitted for induction of labor in the setting of persistent, painful contractions starting at 28 weeks and unresponsive to had a Pean. The patient was induced with Pitocin and augmented with AROM, and progressed to fully dilated. After 30 minutes in stage, she was delivered of a healthy baby girl. There was no nuchal cord, and the shoulders delivered with ease. The placenta was delivered spontaneously and intact shortly thereafter, with a three-vessel cord. A small first-degree perineal laceration did not require repair. Patient had a persistent lower uterine atony with ongoing delivered bleeding, and received 1 dose of IM Methergine to good effect along with the usual Pitocin. There were no intrapartum or immediate complications. Baby 1: gender: Female Presentation: vertex Position: Left Occiput Anterior Placenta delivery description: Spontaneous Cord Vessel Description: 3 Vessels score (1 min): 9 score (5 min): 9 weight: 7 lb 5 oz Plan for aftercare: Routine care
--- NOTE | 2021-02-14 18:11 | PM.AN.REGBLK ---
Regional Block Pre-procedure Procedure: Continuous Lumbar Epidural for L&D Attending OB provider: Marielle GUNN/TOD narrative: term labor, no complications Hx: No personal or family history of anesthesia problems. ASA Class: II Labs: Hct 35.2 % (36-46) L 02/14/21 07:43 Plt Count 232 X10^3/uL (150-400) 02/14/21 07:43 Medications: Current Medications Generic Name Dose Route Start Last Admin Trade Name Freq PRN Reason Stop Dose Admin Acetaminophen 650 mg 02/14/21 15:34 Acetaminophen 325 Mg Tablet PO Q6HR PRN Pain, Mild (1-3) Benzocaine 1 spray 02/14/21 15:34 Dermoplast [place] 20% 60 Ml TOP Q1HR PRN perineal pain Carboprost Tromethamine 250 mcg 02/14/21 15:34 Carboprost 250 Mcg/Ml Ampul IM Q90MIN PRN Bleeding Emollient Ointment 1 applic 02/14/21 15:34 Lanolin Oint 7 Gm TOP PRN PRN Tenderness Oxytocin/Lactated Ringer's 30 unit in 500 mls @ 200 mls/hr 02/14/21 15:34 Oxytocin Premix IV CONT PRN Bleeding Protocol Tranexamic Acid 1,000 mg/ 100 mls @ 200 mls/hr 02/14/21 15:34 Sodium Chloride IV NOW PRN Bleeding Ibuprofen 600 mg 02/14/21 15:34 Ibuprofen 600 Mg Tablet PO Q6HR PRN Pain, Mild (1-3) Methylergonovine Maleate 0.2 mg 02/14/21 15:34 Methylergonovine 0.2 Mg Tablet PO Q6HR PRN Heavy bleeding Misoprostol 800 mcg 02/14/21 15:34 Misoprostol 200 Mcg Tablet TX NOW PRN Bleeding Misoprostol 1,000 mcg 02/14/21 15:34 Misoprostol 200 Mcg Tablet TX NOW PRN Bleeding Misoprostol 400 mcg 02/14/21 15:34 Misoprostol 200 Mcg Tablet SL NOW PRN Bleeding Naloxone HCl 0.2 mg 02/14/21 15:34 Naloxone 0.4 Mg/Ml Vial IV Q2MIN PRN Opiate Reversal Oxycodone HCl 5 mg 02/14/21 15:34 Oxycodone Ir 5 Mg Tablet PO Q4HR PRN Pain, Moderate (4-6) Oxytocin 10 unit 02/14/21 15:34 Oxytocin 10 Unit/Ml Vial IM NOW PRN Bleeding Vit/Calcium/Iron/Folic Ac 1 tab 02/15/21 09:00 Vit,Calc/Iron/Folic 1 Tablet PO DAILY YANET Rho Immune Globulin 1,500 unit 02/14/21 15:34 Rho(D) Immune Globulin 1,500 Unit Syringe IM NOW PRN Mom Rh neg, Rh pos Sertraline HCl 50 mg 02/14/21 21:00 Sertraline 50 Mg Tablet PO BEDTIME YANET Allergies: Allergies Allergy/AdvReac Type Severity Reaction Status Date / Time No Known Drug Allergies Allergy Verified 08/11/20 10:03 Procedure Insertion date: 02/14/21 Insertion time: 12:28 Prep/Local: betadine x3 Interspace: L2-3 Patient position: sitting Needle: 18 gauge Spark [place] (CSE: 27g Pencan through [place], clear CSF, 1mL 0.25% bupiv) Loss of resistance with: saline STEPHANIE at (cm): 3 Catheter placed at SKIN (cm): 8 Catheter in SPACE (cm): 5 Insertion: No CSF, No Blood, No Paresthesia with insertion, No Paresthesia with injection and No Test dose reaction Initial Medications TEST DOSE time: 12:28 TEST DOSE: 1.5% lidocaine with epinephrine 1:200k (mL): 3 BOLUS DOSE time: 12:41 BOLUS DOSE (mL): 3 BOLUS DOSE med: other (infusate) Infusion INFUSION: 0.125% bupivacaine and with fentanyl 2 mcg/mL Initial rate (mL/hr): 6 Post-procedure Anesthesia time START: 12:14 Anesthesia time END: 14:37 Post-procedure Anesthesia Assessment: Yes CV function: HR/BP stable, Yes Resp function: RR/sat/airway adequate, Yes Post-op hydration adequate, Yes Pain control adequate, Yes Mental status appropriate and No Anesthesia complications
[2021-02-14] MEDS: LANOLIN OINT 7 GM 1 APPLIC TOP (19:43)
[2021-02-14] MEDS: IBUPROFEN 600 MG TABLET PO (19:43)
[2021-02-15] MEDS: OXYCODONE IR 5 MG TABLET PO (05:26)
[2021-02-15] MEDS: IBUPROFEN 600 MG TABLET PO ×2 (05:26→11:25)
--- NOTE | 2021-02-15 08:25 | P.DS_ITS ---
Discharge Providers Provider Date of admission: 02/14/21 07:16 Discharge Date: 02/15/21 Primary care physician: Doctor Kal MD Consults: 02/15/21 15:05 Consult to Wildlife Photographer Routine Comment: Discharge provider: Marielle Dillard MD Summary Time Spent with Patient Time attestation: Total time spent providing and/or coordinating discharge services: Objective Labs Result Diagrams: 02/14/21 07:43 Labs: Laboratory Results - last 24 hr 02/14/21 02/14/21 02/14/21 07:43 07:43 09:06 WBC 6.4 RBC 4.19 Hgb 11.9 L Hct 35.2 L MCV 84.1 MCH 28.3 MCHC 33.6 RDW 13.8 Plt Count 232 Neut % (Auto) 59.5 Lymph % (Auto) 28.3 [place] % (Auto) 10.4 Eos % (Auto) 0.8 L Baso % (Auto) 1.0 Neut # (Auto) 3800 Lymph # (Auto) 1800 [place] # (Auto) 700 Eos # (Auto) 100 Baso # (Auto) 100 SARS-CoV-2 (PCR) Negative Blood Type O Positive Antibody Screen Negative Exam Vital Signs (past 8 hours): 97/67, HR 77 Narrative Exam Narrative: Patient feling well, good pain control, ambulating, voiding, flatus present, tolerating PO, mild to moderate lochia. No other symptoms. Const General: cooperative, healthy appearing, comfortable and well groomed Resp Effort & Inspection: normal respiratory effort Auscultation: clear to auscultation bilaterally Cardio Rate: regular rate Rhythm: regular rhythm GI Palpation: soft and No tender Extrem General: normal to inspection Discharge Plan Discharge Plan Patient Disposition: Home Discharge orders & Medications Prescriptions: New ibuprofen 600 mg tablet 600 mg PO Q6H PRN (Reason: vaginal delivery) Qty: 30 RF: 1 Continued prenat.vits,jad,[id number] Tablet 1 tab PO DAILY RF: 0 ferrous sulfate 325 mg (65 mg iron) tablet 325 mg PO DAILY RF: 0 Follow up/Referrals: Marielle Dillard MD [Physician] - 6 Weeks (Wants nexplanon. Please follow up with Dr. Dillard on , March , with a : check in time. If you have any questions/concerns or need to reschedule, please call .) Doctor Bowden MD [Primary Care Provider] - Diet/Activity/Treatments Diet: Regular Activity: Nothing in the vagina for 6 weeks. Avoid lifting more than 10 lbs for 6 weeks. If you have increasing bleeding, fevers, chills, nausea, vomiting, headaches, visual changes, worsening depression or anxiety, or any other symptoms, call or come to the emergency room. Skin/Wound/Dressing Care Report to your healthcare provider any signs of infection, such as:: chills, fever, night sweats, increased pain, unusual drainage and unusual redness Visit Report/Discharge Packet Instructions: DI for Labor and Delivery, Vaginal Stand Alone Forms: Discharge: Care Discharge Data Primary Care Provider: Doctor Kal
[2021-02-15] MEDS: PRENATAL VIT,CALC/IRON/FOLIC 1 TABLET 1 TAB PO (09:09)
[2021-02-15 12:47] VITALS: BP 106/69; PULSE 79; RESP 17; TEMP 36.9
== END 2021-02-15 14:35 | disposition home or self-care (01) | DRG 807 ==
PROVIDERS: Admitting Provider Obstetrics & Gynecology; Referring Provider Obstetrics & Gynecology; Visit Provider Obstetrics & Gynecology
DX: O99.02 Anemia complicating childbirth (principal); Z37.0 Single live birth; D64.9 Anemia, unspecified; O99.344 Other mental disorders complicating childbirth; Z3A.39 39 weeks gestation of pregnancy; F32.9 Major depressive disorder, single episode, unspecified
CPT/HCPCS: 01967; 36415; 59050; 59400; 85025; 86850; 86900; 86901; 87635; C9803; G0379; J2210; J2590